=== PATIENT | female | born 1980 | race Caucasian/White ===

== ENCOUNTER 2017-04-10 14:06 | Emergency (ER) | payer MEDICAID ==
[~2017-04-10] VITALS: Ht 160 cm; Wt 74.5 kg
[2017-04-10 14:09] VITALS: Ht 160 cm; Wt 74.5 kg
[2017-04-10] MEDS ORDERED: HYDROCODONE/APAP (5/325) TAB PO STA (14:41)
--- NOTE | 2017-04-10 16:13 | RADRPT ---
PROCEDURE: XR Right Forearm. CLINICAL INDICATION: Right forearm pain. TECHNIQUE: AP and lateral views of the right forearm were obtained. COMPARISON: No prior studies are available for comparison. FINDINGS: There is a plate and multiple screws transfixing the proximal shaft of the ulna. There is an old he aled fracture at this site. There is no new fracture and there is no dislocation. The soft tissues are normal. Articular surfaces are intact. There is no lytic or blastic lesion. IMPRESSION: 1. Prior open reduction and internal fixation of the proximal shaft of the ulna. 2. Otherwise unremarkable images of the right forearm. RPTAT: QQ .Liban Cook MD, MD Date Time Electronically viewed and signed by .Liban Cook MD, on 04/10/2017 16:12 .R/
[2017-04-10] MEDS ORDERED: IBUP-1542 PO (16:18)
[2017-04-10 16:37] VITALS: BP 135/72; PULSE 72; RESP 16; TEMP 98.9
--- NOTE | 2017-04-10 17:59 | ERD ---
ER Documentation Chief Complaint Date/Time DATE: 04/10/17 TIME: 17:53 Chief Complaint right arm pain today HPI This is a 37-year-old female presenting to the emergency department with right arm pain locating it in the dorsal forearm where she had a plate inserted 8 years prior to being seen. Patient states the pain started suddenly today increased with movement. She rates it moderate to severe. Patient states that she has not tried any medication for this. She denies any fevers ROS All systems reviewed and are negative except as per history of present illness. Medications Home Meds Active Scripts Ibuprofen* (Ibuprofen*) 600 Mg Tablet, 600 MG PO Q6H, #30 TAB Prov:CARLOS MANUEL TERRAZAS PA-C 04/10/17 Allergies Allergies: Coded Allergies: No Known Allergy (Unverified , 04/10/17) PMhx/Soc Medical and Surgical Hx: pt denies Surgical Hx Hx Alcohol Use: No Hx Substance Use: No Smoking Status: Never smoker Physical Exam Vitals Vital Signs Date Time Temp Pulse Resp B/P Pulse Ox O2 Delivery O2 Flow Rate FiO2 04/10/17 16:37 98.9 72 16 135/72 99 Room Air 04/10/17 14:09 98.3 77 18 119/74 97 Physical Exam General: WD/WN, in no apparent distress, non-toxic appearing HENT: NC/AT Eyes: Conjunctiva normal Neck: Supple Pulm: Clear to auscultation, normal labored breathing; no wheezing/rales/ rhonchi heard CV: Good capillary refill GI: Non-distended, no guarding Back: No masses Ext: Tender to palpation over the right dorsal forearm where previous surgery was, over the site of scar Neuro: Moves on all fours Skin: intact Psych: Normal mood Results 24 hrs Current Medications Medications (Trade) Dose Ordered Sig/Nick Route PRN Reason Start Time Stop Time Status Last Admin Dose Admin Acetaminophen/ Hydrocodone Bitart ([place] (5/325)) 2 tab ONCE STAT PO 04/10/17 14:41 04/10/17 14:43 DC 04/10/17 15:06 Procedures/MDM 37-year-old female presenting to the emergency department complaining of right forearm pain status post open reduction internal fixation of the proximal shaft of the ulna 8 years prior to being seen. This is likely a strain. There was no evidence of fracture or dislocation. X-ray was done and the hardware was fine. Patient was given [place] in the ED I have reassessed her and she seemed feels better. Patient is stable and neurovascular intact to be discharged home. Discussed return to the ER for any worsening signs and symptoms. Patient understands and agrees with this plan XR right forearm: 1. Prior open reduction and internal fixation of the proximal shaft of the ulna. 2. Otherwise unremarkable images of the right forearm. Departure Diagnosis: Primary Impression: Forearm strain Condition: Stable Patient Instructions: Self-Care for Strains and Sprains Referrals: roper doctora Additional Instructions: Visite a roper niko alexander para un EXAMEN.Regrese a estas instalaciones si no se mejora parish esperbamos o parish le dijimos. [place] toda la medicina k[place] y parish se le indic. Regrese a estas instalaciones si no se mejora parish esperbamos o parish le dijimos. CARLOS MANUEL TERRAZAS PA-C Apr 10, 2017 17:59
== END 2017-04-10 16:38 | disposition home or self-care (01) ==
LOC: FTE 14:06
DX: S56.911A Strain of unspecified muscles, fascia and tendons at forearm level, right arm, initial encounter (principal); X58.XXXA Exposure to other specified factors, initial encounter; Y92.9 Unspecified place or not applicable
CPT/HCPCS: 73090; Z7502; Z7610